=== PATIENT | female | born 1940 | race African-American/Black ===

== ENCOUNTER 2021-08-01 10:10 | Inpatient (IN) | payer MEDICARE ==
[~2021-08-01] VITALS: Ht 160 cm; Wt 67.1 kg
[2021-08-01] MEDS ORDERED: DILTIAZEM HCL 5MG/ML 5ML VIAL IV ONE (10:30)
[2021-08-01 11:07] LABS: HEMATOCRIT. 38.5 % (36.0-48.0); HEMOGLOBIN. 12.5 g/dL (12.0-16.0); MEAN CORPUSCULAR HEMOGLOBIN 29.9 pg (28.0-32.0); PLATELET 247 x1000/uL (130-400); RED BLOOD CELL COUNT 4.18 mill/uL (4.2-5.4); RED CELL DISTRIBUTION WIDTH 15.1 % (11.6-14.6)
[2021-08-01 11:14] LABS: CHLORIDE 100 mEq/L (98-107)
[2021-08-01 11:19] LABS: INR 1.6; PROTHROMBIN TIME 16.8 sec (9.6-11.0)
[2021-08-01] MEDS ORDERED: DILTIAZEM HCL 125 MG in DEXT 5% WATER 100 ML IV ONE (11:30)
[2021-08-01] MEDS ORDERED: VANCOMYCIN 1 G PREMIX 200 ML IV ONE (11:30)
[2021-08-01] MEDS ORDERED: PIPERACILLIN/TAZ 3.375G PREMIX 50 ML IV ONE (11:30)
[2021-08-01] MEDS ORDERED: SODIUM CHLORIDE 0.9% 1,000 ML IV ONE (11:45)
[2021-08-01 11:48] LABS: PLATELET ESTIMATE NORMAL
[2021-08-01] MEDS ORDERED: ENOXAPARIN 40MG/0.4ML SYR SUBCUT SCH (12:15)
[2021-08-01] MEDS ORDERED: ONDANSETRON HCL 4MG/2ML INJ IV PRN (12:15)
[2021-08-01] MEDS ORDERED: PIPERACILLIN/TAZOBACTAM 3.375 G in DEXTROSE 5% WATER 50 ML IV SCH (12:15)
[2021-08-01] MEDS ORDERED: CLONIDINE 0.1MG TABLET PO PRN (12:15)
[2021-08-01] MEDS ORDERED: IPRATROPIUM/ALBUTEROL 0.5-3(2.5)MG/3ML NEB HHN PRN (12:15)
[2021-08-01] MEDS ORDERED: DIPHENHYDRAMINE 50MG/ML VIAL IV PRN (12:15)
[2021-08-01] MEDS ORDERED: ENOXAPARIN 30MG/0.3ML SYR SUBCUT SCH (13:00)
[2021-08-01] MEDS ORDERED: LIDOCAINE HCL 1% 30ML VIAL (10MG/ML) ONE (13:03)
[2021-08-01] MEDS: DILTIAZEM HCL 30MG TABLET PO SCH (16:30)
[2021-08-01] MEDS ORDERED: ALBUMIN HUMAN 25GM/100ML (25%) IV PRN (21:00)
[2021-08-02] MEDS: PIPERACILLIN/TAZ 3.375G PREMIX 50 ML IV SCH ×4 (00:04→23:11)
[2021-08-02] MEDS: DILTIAZEM HCL 30MG TABLET PO SCH (01:08)
[2021-08-02 05:32] LABS: BASOPHILS % 0.2 % (0.0-2.0); HEMATOCRIT. 36.4 % (36.0-48.0); HEMOGLOBIN. 11.8 g/dL (12.0-16.0); LYMPHOCYTES % 9.2 % (20.0-50.0); MEAN CORPUSCULAR HEMOGLOBIN 29.8 pg (28.0-32.0); MEAN CORPUSCULAR VOLUME 91.7 fL (81.0-99.0); MEAN PLATELET VOLUME 8.8 fl (7.4-10.4); MONOCYTES % 5.1 % (2.0-8.0); NEUTROPHILS % 85.5 % (40.0-76.0); PLATELET 121 x1000/uL (130-400); RED BLOOD CELL COUNT 3.97 mill/uL (4.2-5.4)
[2021-08-02 05:37] LABS: CHLORIDE 102 mEq/L (98-107)
[2021-08-02] MEDS: DILTIAZEM HCL 125 MG in DEXTROSE 5% WATER 125 ML IV PRN ×2 (05:38→06:13)
[2021-08-02 05:44] LABS: LDL CHOLESTEROL 86 mg/dL (5-100)
[2021-08-02 05:45] LABS: HDL CHOLESTEROL 23 mg/dL (40-59)
[2021-08-02] MEDS: VANCOMYCIN 500 MG PREMIX 100 ML IV SCH (06:12)
[2021-08-02] MEDS ORDERED: DEXTROSE 50% WATER 50ML SYRINGE IV PRN (08:15)
[2021-08-02] MEDS: BLOOD SUGAR DIAGNOSTIC STRIP TEST SCH ×2 (11:30→21:00)
[2021-08-02] MEDS: INSULIN LISPRO 100 UNITS/ML SUBCUT SCH (12:00)
[2021-08-02] MEDS: ENOXAPARIN 60MG/0.6ML SYR SUBCUT SCH (13:00)
[2021-08-02] MEDS: DILTIAZEM HCL 60MG TABLET PO SCH (23:07)
[2021-08-02 23:30] VITALS: BP 114/77
[2021-08-02 23:46] VITALS: BP 109/69
[2021-08-03] VITALS (13 sets, daily range): BP systolic 108–160; BP diastolic 30–85
[2021-08-03] MEDS: ACETAMINOPHEN 325MG TABLET PO PRN (00:01)
[2021-08-03] MEDS: VANCOMYCIN 500 MG PREMIX 100 ML IV SCH (01:52)
[2021-08-03] MEDS: PIPERACILLIN/TAZ 3.375G PREMIX 50 ML IV SCH ×2 (05:47→14:06)
[2021-08-03] MEDS: DILTIAZEM HCL 60MG TABLET PO SCH ×4 (05:57→23:28)
[2021-08-03] MEDS: INSULIN LISPRO 100 UNITS/ML SUBCUT SCH ×4 (08:00→21:00)
[2021-08-03] MEDS: BLOOD SUGAR DIAGNOSTIC STRIP TEST SCH ×4 (08:18→21:00)
[2021-08-03] MEDS ORDERED: INFLUENZA VACCINE 05/PF 0.5 ML SYRINGE IM ONE (09:00)
[2021-08-03] MEDS ORDERED: PNEUMOCOCCAL 23-VAL P-SAC VAC 0.5 ML IM ONE (09:00)
[2021-08-03] MEDS: ENOXAPARIN 60MG/0.6ML SYR SUBCUT SCH (09:00)
[2021-08-03] MEDS ORDERED: ENOXAPARIN 40MG/0.4ML SYR SUBCUT SCH (12:00)
[2021-08-03] MEDS: PIPERACILLIN/TAZOBACTAM 3.375 G in DEXTROSE 5% WATER 50 ML IV SCH (22:18)
[2021-08-04] VITALS (15 sets, daily range): BP systolic 88–124; BP diastolic 43–73
[2021-08-04] MEDS: PIPERACILLIN/TAZOBACTAM 3.375 G in DEXTROSE 5% WATER 50 ML IV SCH (05:22)
[2021-08-04] MEDS: DILTIAZEM HCL 60MG TABLET PO SCH (05:42)
[2021-08-04] MEDS ORDERED: VANCOMYCIN 500 MG PREMIX 100 ML IV SCH (06:00)
[2021-08-04] MEDS: BLOOD SUGAR DIAGNOSTIC STRIP TEST SCH ×4 (07:32→21:00)
[2021-08-04] MEDS: INSULIN LISPRO 100 UNITS/ML SUBCUT SCH ×4 (07:51→21:00)
[2021-08-04 08:00] LABS: CHLORIDE 102 mEq/L (98-107)
[2021-08-04] MEDS ORDERED: ASPIRIN 81MG TABLET PO SCH (09:00)
[2021-08-04 09:34] LABS: BASOPHILS % 0.3 % (0.0-2.0); EOSINOPHILS % 0.2 % (0.0-5.0); HEMATOCRIT. 35.4 % (36.0-48.0); HEMOGLOBIN. 11.5 g/dL (12.0-16.0); LYMPHOCYTES % 7.7 % (20.0-50.0); MEAN CORPUSCULAR VOLUME 92.5 fL (81.0-99.0); NEUTROPHILS % 87.8 % (40.0-76.0); RED BLOOD CELL COUNT 3.82 mill/uL (4.2-5.4); RED CELL DISTRIBUTION WIDTH 15.5 % (11.6-14.6)
[2021-08-04] MEDS: ACETAMINOPHEN 325MG TABLET PO PRN (09:45)
[2021-08-04] MEDS ORDERED: METRONIDAZOLE 500 MG PREMIX 100 ML IV SCH (13:00)
[2021-08-04] MEDS ORDERED: DILTIAZEM HCL 30MG TABLET PO SCH (14:00)
[2021-08-04] MEDS: METRONIDAZOLE 500MG TABLET PO SCH ×2 (14:18→22:29)
[2021-08-04] MEDS: METOPROLOL TARTRATE 25MG TABLET PO SCH ×2 (14:22→22:00)
[2021-08-04] MEDS ORDERED: AZITHROMYCIN 500 MG in DEXT 5% WATER 250 ML IV SCH (15:00)
[2021-08-04 15:34] LABS: INR 1.4; PROTHROMBIN TIME 15.1 sec (9.6-11.0)
[2021-08-04] MEDS: CEFEPIME 2,000 MG in DEXT 5% WATER 100 ML IV SCH (15:45)
[2021-08-04 16:08] LABS: D-DIMER > 35.20 mg/L FEU (<0.50)
[2021-08-04] MEDS: DEXT 5%/0.9% NACL 1,000 ML IV SCH (17:52)
[2021-08-05] VITALS (12 sets, daily range): BP systolic 102–130; BP diastolic 69–79
[2021-08-05] MEDS: CEFEPIME 2,000 MG in DEXT 5% WATER 100 ML IV SCH ×2 (03:27→15:15)
[2021-08-05] MEDS: METRONIDAZOLE 500MG TABLET PO SCH ×3 (05:20→21:51)
[2021-08-05 07:26] LABS: BASOPHILS % 0.2 % (0.0-2.0); EOSINOPHILS % 0.3 % (0.0-5.0); HEMATOCRIT. 33.4 % (36.0-48.0); HEMOGLOBIN. 10.8 g/dL (12.0-16.0); LYMPHOCYTES % 9.5 % (20.0-50.0); MEAN CORPUSCULAR HEMOGLOBIN 30.1 pg (28.0-32.0); MEAN CORPUSCULAR VOLUME 92.8 fL (81.0-99.0); MEAN PLATELET VOLUME 10.4 fl (7.4-10.4); MONOCYTES % 5.1 % (2.0-8.0); NEUTROPHILS % 84.9 % (40.0-76.0); PLATELET 56 x1000/uL (130-400); RED CELL DISTRIBUTION WIDTH 15.4 % (11.6-14.6)
[2021-08-05] MEDS: BLOOD SUGAR DIAGNOSTIC STRIP TEST SCH ×4 (07:30→21:40)
[2021-08-05 07:59] LABS: CHLORIDE 100 mEq/L (98-107)
[2021-08-05] MEDS: INSULIN LISPRO 100 UNITS/ML SUBCUT SCH ×4 (08:00→21:00)
[2021-08-05] MEDS: METOPROLOL TARTRATE 25MG TABLET PO SCH ×2 (09:35→21:51)
[2021-08-05] MEDS ORDERED: SODIUM CHLORIDE 0.9% 750 ML IV NR (14:00)
[2021-08-05] MEDS: DEXT 5%/0.9% NACL 1,000 ML IV SCH (15:14)
[2021-08-05] MEDS: AZITHROMYCIN 500 MG TABLET PO SCH (15:14)
[2021-08-05 15:31] LABS: PLATELET 11 x1000/uL (130-400)
[2021-08-05] MEDS: ASPIRIN 81MG TABLET PO SCH (17:20)
[2021-08-05] MEDS ORDERED: IOHEXOL-350 100 ML BOTTLE ONE (22:50)
[2021-08-06] VITALS (12 sets, daily range): BP systolic 102–136; BP diastolic 45–77
[2021-08-06] MEDS: CEFEPIME 2,000 MG in DEXT 5% WATER 100 ML IV SCH ×2 (02:34→14:06)
[2021-08-06] MEDS: DEXT 5%/0.9% NACL 1,000 ML IV SCH ×2 (02:34→21:36)
[2021-08-06] MEDS: METRONIDAZOLE 500MG TABLET PO SCH ×3 (05:36→21:37)
[2021-08-06 06:05] LABS: CHLORIDE 101 mEq/L (98-107)
[2021-08-06 06:07] LABS: BASOPHILS % 0.1 % (0.0-2.0); EOSINOPHILS % 0.4 % (0.0-5.0); HEMATOCRIT. 31.4 % (36.0-48.0); HEMOGLOBIN. 10.4 g/dL (12.0-16.0); LYMPHOCYTES % 7.4 % (20.0-50.0); MEAN CORPUSCULAR HEMOGLOBIN 30.5 pg (28.0-32.0); MEAN CORPUSCULAR VOLUME 92.4 fL (81.0-99.0); MEAN PLATELET VOLUME 11.2 fl (7.4-10.4); MONOCYTES % 5.2 % (2.0-8.0); NEUTROPHILS % 86.9 % (40.0-76.0); PLATELET 73 x1000/uL (130-400); RED BLOOD CELL COUNT 3.39 mill/uL (4.2-5.4); RED CELL DISTRIBUTION WIDTH 15.5 % (11.6-14.6)
[2021-08-06] MEDS: BLOOD SUGAR DIAGNOSTIC STRIP TEST SCH ×4 (07:30→20:14)
[2021-08-06] MEDS: INSULIN LISPRO 100 UNITS/ML SUBCUT SCH ×4 (08:00→20:14)
[2021-08-06] MEDS ORDERED: ENOXAPARIN 60MG/0.6ML SYR SUBCUT SCH (09:00)
[2021-08-06] MEDS: ASPIRIN 81MG TABLET PO SCH (10:23)
[2021-08-06] MEDS: METOPROLOL TARTRATE 25MG TABLET PO SCH ×2 (10:23→21:37)
[2021-08-06] MEDS ORDERED: POTASSIUM CHLORIDE 20MEQ/PACKET PO SCH (10:45)
[2021-08-06] MEDS: AZITHROMYCIN 500 MG TABLET PO SCH (11:51)
[2021-08-06 12:52] LABS: FIBRINOGEN 450 mg/dL (200-400); INR 1.4; PARTIAL THROMBOPLASTIN TIME 35.8 sec (23.4-31.0)
[2021-08-06] MEDS ORDERED: SODIUM CHLORIDE 0.9% 750 ML IV NR (14:00)
[2021-08-06] MEDS: ENOXAPARIN 60MG/0.6ML SYR SUBCUT SCH (14:07)
[2021-08-06 14:31] LABS: D-DIMER > 35.20 mg/L FEU (<0.50)
[2021-08-07] VITALS (12 sets, daily range): BP systolic 116–152; BP diastolic 69–83
[2021-08-07] MEDS: ENOXAPARIN 60MG/0.6ML SYR SUBCUT SCH ×2 (01:47→15:12)
[2021-08-07] MEDS: CEFEPIME 2,000 MG in DEXT 5% WATER 100 ML IV SCH ×2 (02:11→15:12)
[2021-08-07] MEDS: METRONIDAZOLE 500MG TABLET PO SCH ×3 (06:10→21:06)
[2021-08-07 07:28] LABS: BASOPHILS % 0.1 % (0.0-2.0); EOSINOPHILS % 0.3 % (0.0-5.0); HEMOGLOBIN. 10.8 g/dL (12.0-16.0); LYMPHOCYTES % 7.9 % (20.0-50.0); MEAN CORPUSCULAR HEMOGLOBIN 30.4 pg (28.0-32.0); MEAN CORPUSCULAR VOLUME 93.2 fL (81.0-99.0); MEAN PLATELET VOLUME 10.4 fl (7.4-10.4); MONOCYTES % 5.3 % (2.0-8.0); NEUTROPHILS % 86.4 % (40.0-76.0); PLATELET 113 x1000/uL (130-400); RED BLOOD CELL COUNT 3.54 mill/uL (4.2-5.4); RED CELL DISTRIBUTION WIDTH 16.1 % (11.6-14.6)
[2021-08-07 07:29] LABS: CHLORIDE 105 mEq/L (98-107)
[2021-08-07] MEDS: INSULIN LISPRO 100 UNITS/ML SUBCUT SCH ×4 (08:00→21:00)
[2021-08-07] MEDS: BLOOD SUGAR DIAGNOSTIC STRIP TEST SCH ×4 (08:01→21:06)
[2021-08-07] MEDS: ASPIRIN 81MG TABLET PO SCH (08:36)
[2021-08-07] MEDS: METOPROLOL TARTRATE 25MG TABLET PO SCH ×3 (08:36→21:06)
[2021-08-07] MEDS: AZITHROMYCIN 500 MG TABLET PO SCH (10:04)
[2021-08-07] MEDS: DEXT 5%/0.9% NACL 1,000 ML IV SCH (13:05)
[2021-08-07] MEDS: IPRATROPIUM/ALBUTEROL 0.5-3(2.5)MG/3ML NEB HHN SCH ×2 (15:08→21:22)
[2021-08-08] VITALS (11 sets, daily range): BP systolic 110–147; BP diastolic 70–83
[2021-08-08] MEDS: ENOXAPARIN 60MG/0.6ML SYR SUBCUT SCH ×2 (02:25→14:05)
[2021-08-08] MEDS: CEFEPIME 2,000 MG in DEXT 5% WATER 100 ML IV SCH ×2 (02:26→15:58)
[2021-08-08] MEDS: DEXT 5%/0.9% NACL 1,000 ML IV SCH ×2 (04:53→09:19)
[2021-08-08] MEDS: METRONIDAZOLE 500MG TABLET PO SCH ×3 (05:37→21:10)
[2021-08-08] MEDS: BLOOD SUGAR DIAGNOSTIC STRIP TEST SCH ×4 (07:30→21:00)
[2021-08-08] MEDS: INSULIN LISPRO 100 UNITS/ML SUBCUT SCH ×4 (08:00→21:00)
[2021-08-08] MEDS: IPRATROPIUM/ALBUTEROL 0.5-3(2.5)MG/3ML NEB HHN SCH ×3 (08:34→20:48)
[2021-08-08] MEDS: METOPROLOL TARTRATE 25MG TABLET PO SCH ×2 (08:51→21:10)
[2021-08-08] MEDS: ASPIRIN 81MG TABLET PO SCH (08:51)
[2021-08-08] MEDS: AZITHROMYCIN 500 MG TABLET PO SCH (10:58)
[2021-08-08] MEDS ORDERED: NALOXONE HCL 0.4MG/ML VIAL IV PRN (14:00)
[2021-08-08] MEDS: MORPHINE SULFATE 2 MG/ML CPJ (NOT FOR IM USE) IV PRN (14:16)
[2021-08-08 16:49] LABS: BASOPHILS % 0.2 % (0.0-2.0); EOSINOPHILS % 0.3 % (0.0-5.0); HEMATOCRIT. 32.9 % (36.0-48.0); HEMOGLOBIN. 10.4 g/dL (12.0-16.0); LYMPHOCYTES % 7.9 % (20.0-50.0); MEAN CORPUSCULAR HEMOGLOBIN 29.2 pg (28.0-32.0); MEAN CORPUSCULAR VOLUME 92.1 fL (81.0-99.0); MEAN PLATELET VOLUME 9.7 fl (7.4-10.4); MONOCYTES % 4.8 % (2.0-8.0); NEUTROPHILS % 86.8 % (40.0-76.0); PLATELET 193 x1000/uL (130-400); RED BLOOD CELL COUNT 3.57 mill/uL (4.2-5.4); RED CELL DISTRIBUTION WIDTH 16.8 % (11.6-14.6)
[2021-08-08 17:04] LABS: CHLORIDE 108 mEq/L (98-107)
[2021-08-09] VITALS (8 sets, daily range): BP systolic 108–130; BP diastolic 60–81
[2021-08-09] MEDS: ENOXAPARIN 60MG/0.6ML SYR SUBCUT SCH ×2 (02:06→14:31)
[2021-08-09] MEDS: CEFEPIME 2,000 MG in DEXT 5% WATER 100 ML IV SCH ×2 (02:06→14:30)
[2021-08-09] MEDS: METRONIDAZOLE 500MG TABLET PO SCH ×2 (05:18→14:30)
[2021-08-09] MEDS: DEXT 5%/0.9% NACL 1,000 ML IV SCH (05:19)
[2021-08-09] MEDS: BLOOD SUGAR DIAGNOSTIC STRIP TEST SCH ×4 (07:19→21:48)
[2021-08-09] MEDS: INSULIN LISPRO 100 UNITS/ML SUBCUT SCH ×4 (07:41→21:00)
[2021-08-09 08:42] LABS: BASOPHILS % 0.2 % (0.0-2.0); EOSINOPHILS % 0.4 % (0.0-5.0); HEMATOCRIT. 31.4 % (36.0-48.0); HEMOGLOBIN. 10.2 g/dL (12.0-16.0); LYMPHOCYTES % 8.7 % (20.0-50.0); MEAN CORPUSCULAR HEMOGLOBIN 29.8 pg (28.0-32.0); MEAN CORPUSCULAR VOLUME 91.7 fL (81.0-99.0); MEAN PLATELET VOLUME 9.3 fl (7.4-10.4); MONOCYTES % 6.4 % (2.0-8.0); NEUTROPHILS % 84.3 % (40.0-76.0); PLATELET 213 x1000/uL (130-400); RED BLOOD CELL COUNT 3.42 mill/uL (4.2-5.4); RED CELL DISTRIBUTION WIDTH 16.3 % (11.6-14.6)
[2021-08-09 08:47] LABS: CHLORIDE 106 mEq/L (98-107)
[2021-08-09] MEDS: IPRATROPIUM/ALBUTEROL 0.5-3(2.5)MG/3ML NEB HHN SCH ×2 (08:54→15:44)
[2021-08-09] MEDS: METOPROLOL TARTRATE 25MG TABLET PO SCH ×2 (09:25→21:48)
[2021-08-09] MEDS: ASPIRIN 81MG TABLET PO SCH (09:25)
[2021-08-09] MEDS: MORPHINE SULFATE 2 MG/ML CPJ (NOT FOR IM USE) IV PRN ×2 (15:33→23:34)
[2021-08-10] VITALS (11 sets, daily range): BP systolic 108–132; BP diastolic 63–101
[2021-08-10] MEDS: IPRATROPIUM/ALBUTEROL 0.5-3(2.5)MG/3ML NEB HHN SCH ×3 (00:40→16:10)
[2021-08-10] MEDS: ENOXAPARIN 60MG/0.6ML SYR SUBCUT SCH ×2 (01:28→14:22)
[2021-08-10 05:49] LABS: BASOPHILS % 0.2 % (0.0-2.0); EOSINOPHILS % 0.5 % (0.0-5.0); HEMATOCRIT. 30.2 % (36.0-48.0); HEMOGLOBIN. 10.2 g/dL (12.0-16.0); MEAN CORPUSCULAR HEMOGLOBIN 30.7 pg (28.0-32.0); MEAN CORPUSCULAR VOLUME 91.2 fL (81.0-99.0); MEAN PLATELET VOLUME 9.1 fl (7.4-10.4); MONOCYTES % 6.3 % (2.0-8.0); PLATELET 254 x1000/uL (130-400); RED BLOOD CELL COUNT 3.31 mill/uL (4.2-5.4); RED CELL DISTRIBUTION WIDTH 16.5 % (11.6-14.6)
[2021-08-10] MEDS: MORPHINE SULFATE 2 MG/ML CPJ (NOT FOR IM USE) IV PRN ×2 (05:59→10:02)
[2021-08-10 07:03] LABS: CHLORIDE 108 mEq/L (98-107)
[2021-08-10] MEDS: BLOOD SUGAR DIAGNOSTIC STRIP TEST SCH ×4 (07:30→21:16)
[2021-08-10] MEDS: INSULIN LISPRO 100 UNITS/ML SUBCUT SCH ×4 (08:00→21:00)
[2021-08-10] MEDS: METOPROLOL TARTRATE 25MG TABLET PO SCH ×2 (09:30→20:52)
[2021-08-10] MEDS: ASPIRIN 81MG TABLET PO SCH (09:30)
[2021-08-10] MEDS: DEXT 5%/0.9% NACL 1,000 ML IV SCH (10:41)
[2021-08-10] MEDS ORDERED: METO25TA6 PO (14:25)
[2021-08-10] MEDS ORDERED: APIX5TAB MT (14:25)
[2021-08-10] MEDS ORDERED: ASPI-1406 MT (14:28)
== END 2021-08-10 22:09 | DRG 871 ==
LOC: ER 10:10 → MICUSO 11:42 → EDBEDREQTM 11:47 → EDBEDREQSVC 11:47 → EDBEDREQ 11:47 → 5EST 08-02 20:09
PROVIDERS: ADMIT Internal Medicine; ATTEND Internal Medicine
PROC: 02H633Z Insertion of Infusion Device into Right Atrium, Percutaneous Approach (ICD-10-PCS; principal; 2021-08-01)
PROC: B548ZZA Ultrasonography of Superior Vena Cava, Guidance (ICD-10-PCS; 2021-08-01)
PROC: 30233R1 Transfusion of Nonautologous Platelets into Peripheral Vein, Percutaneous Approach (ICD-10-PCS; 2021-08-04)
DX: A41.9 Sepsis, unspecified organism (principal); J18.9 Pneumonia, unspecified organism; J96.01 Acute respiratory failure with hypoxia; I82.220 Acute embolism and thrombosis of inferior vena cava; I26.92 Saddle embolus of pulmonary artery without acute cor pulmonale; G93.41 Metabolic encephalopathy; E87.2 Acidosis; E44.1 Mild protein-calorie malnutrition; F03.90 Unspecified dementia, unspecified severity, without behavioral disturbance, psychotic disturbance, mood disturbance, and anxiety; I11.9 Hypertensive heart disease without heart failure; Z20.822 Contact with and (suspected) exposure to COVID-19; M19.90 Unspecified osteoarthritis, unspecified site; D69.6 Thrombocytopenia, unspecified; D64.9 Anemia, unspecified; N28.9 Disorder of kidney and ureter, unspecified; D15.1 Benign neoplasm of heart; R74.01 Elevation of levels of liver transaminase levels; R73.9 Hyperglycemia, unspecified; I48.0 Paroxysmal atrial fibrillation; R53.81 Other malaise; Z86.73 Personal history of transient ischemic attack (TIA), and cerebral infarction without residual deficits; Z68.26 Body mass index [BMI] 26.0-26.9, adult; W19.XXXA Unspecified fall, initial encounter
CPT/HCPCS: 36415; 71045; 71275; 76937; 80048; 80053; 80061; 80202; 82962; 83036; 83605; 83735; 84145; 84443; 84484; 85025; 85049; 85379; 85384; 86022; 86850; 86900; 87426; 90686; 90732; 93005; 93306; 93308; 93970; 94640; 99285; C1725; J0456; J0692; J1200; J1650; J2270; J2543; J3370; J3490; J7030; J7042; J7060; P9034; P9047; Q9967

== ENCOUNTER 2021-09-14 12:20 | Emergency (ER) | payer MEDICARE ==
[~2021-09-14] VITALS: Ht 162.6 cm; Wt 40.0 kg
[~2021-09-14 12:20] MED LIST: APIX5TAB MT; ASPI-1406 MT; METO25TA6 PO
[2021-09-14 13:44] LABS: BASOPHILS % 1.1 % (0.0-2.0); HEMATOCRIT. 40.4 % (36.0-48.0); LYMPHOCYTES % 19.1 % (20.0-50.0); MEAN CORPUSCULAR HEMOGLOBIN 29.1 pg (28.0-32.0); MEAN CORPUSCULAR VOLUME 90.1 fL (81.0-99.0); MEAN PLATELET VOLUME 8.7 fl (7.4-10.4); MONOCYTES % 4.6 % (2.0-8.0); NEUTROPHILS % 74.2 % (40.0-76.0); PLATELET 212 x1000/uL (130-400); RED BLOOD CELL COUNT 4.48 mill/uL (4.2-5.4); RED CELL DISTRIBUTION WIDTH 16.3 % (11.6-14.6)
[2021-09-14 13:50] LABS: CHLORIDE 107 mEq/L (98-107)
[2021-09-14 13:56] LABS: ETHANOL BLOOD < 10 mg/dL
[2021-09-14 15:41] LABS: CLARITY URINE CLEAR (CLEAR); COLOR URINE DARK YELLOW (YELLOW); KETONES URINE TRACE (NEGATIVE); LEUKOCYTE ESTERASE URINE NEGATIVE (NEGATIVE); NITRITE URINE NEGATIVE (NEGATIVE); OCCULT BLOOD URINE NEGATIVE (NEGATIVE); PROTEIN URINE 1+ (NEGATIVE); SPECIFIC GRAVITY URINE 1.021 (1.005-1.030); UROBILINOGEN URINE 0.2 E.U./dL (0.2-1.0)
[2021-09-14 15:52] LABS: *AMPHETAMINES SCREEN URINE NEGATIVE (NEGATIVE); *BARBITURATES SCREEN URINE NEGATIVE (NEGATIVE); CANNABINOID URINE SCREEN NEGATIVE (NEGATIVE); METHADONE URINE SCREEN NEGATIVE (NEGATIVE); OPIATES URINE SCREEN NEGATIVE (NEGATIVE); PHENCYCLIDINE URINE SCREEN NEGATIVE (NEGATIVE)
[2021-09-14 15:53] LABS: *BENZODIAZEPINES SCREEN URINE NEGATIVE (NEGATIVE); *COCAINE SCREEN URINE NEGATIVE (NEGATIVE)
[2021-09-14] MEDS ORDERED: LORAZEPAM 1MG TABLET PO ONE (21:30)
[2021-09-15 10:25] VITALS: BP 111/85
== END 2021-09-15 10:23 | disposition home or self-care (01) ==
LOC: ER 12:46
DX: F05 Delirium due to known physiological condition (principal); R40.4 Transient alteration of awareness; I48.91 Unspecified atrial fibrillation; E11.9 Type 2 diabetes mellitus without complications; I51.9 Heart disease, unspecified; Z66 Do not resuscitate; Z79.01 Long term (current) use of anticoagulants; Z79.82 Long term (current) use of aspirin
CPT/HCPCS: 36415; 71045; 80053; 80305; 80320; 81003; 82962; 85025; 99285; G0480

== ENCOUNTER 2021-10-13 13:17 | Emergency (ER) | payer SELFPAY ==
[~2021-10-13] VITALS: Ht 160 cm; Wt 50.0 kg
[2021-10-13] MEDS ORDERED: LORAZEPAM 2MG/ML CPJ IV ONE (13:30)
[2021-10-13 14:10] LABS: BASOPHILS % 0.5 % (0.0-2.0); EOSINOPHILS % 0.5 % (0.0-5.0); HEMOGLOBIN. 11.9 g/dL (12.0-16.0); LYMPHOCYTES % 18.1 % (20.0-50.0); MEAN CORPUSCULAR HEMOGLOBIN 28.1 pg (28.0-32.0); MEAN PLATELET VOLUME 8.9 fl (7.4-10.4); MONOCYTES % 4.3 % (2.0-8.0); NEUTROPHILS % 76.6 % (40.0-76.0); PLATELET 216 x1000/uL (130-400); RED BLOOD CELL COUNT 4.22 mill/uL (4.2-5.4)
[2021-10-13 14:15] LABS: CHLORIDE 104 mEq/L (98-107)
[2021-10-13 15:31] LABS: CLARITY URINE CLEAR (CLEAR); COLOR URINE YELLOW (YELLOW); KETONES URINE NEGATIVE (NEGATIVE); LEUKOCYTE ESTERASE URINE NEGATIVE (NEGATIVE); NITRITE URINE POSITIVE (NEGATIVE); OCCULT BLOOD URINE NEGATIVE (NEGATIVE); PH URINE 5.5 (4.5-8.0); PROTEIN URINE NEGATIVE (NEGATIVE); SPECIFIC GRAVITY URINE 1.007 (1.005-1.030); UROBILINOGEN URINE 0.2 E.U./dL (0.2-1.0)
[2021-10-13] MEDS ORDERED: LEVO500T89 MT (16:41)
[2021-10-13] MEDS ORDERED: CEFTRIAXONE 1 G PREMIX 50 ML IV ONE (18:00)
[2021-10-13 21:30] VITALS: BP 109/63
== END 2021-10-13 21:40 ==
LOC: ER 13:17
DX: R56.9 Unspecified convulsions (principal); N30.00 Acute cystitis without hematuria; F03.90 Unspecified dementia, unspecified severity, without behavioral disturbance, psychotic disturbance, mood disturbance, and anxiety; E11.22 Type 2 diabetes mellitus with diabetic chronic kidney disease; I13.10 Hypertensive heart and chronic kidney disease without heart failure, with stage 1 through stage 4 chronic kidney disease, or unspecified chronic kidney disease; N18.9 Chronic kidney disease, unspecified; J44.9 Chronic obstructive pulmonary disease, unspecified; I48.91 Unspecified atrial fibrillation; M19.90 Unspecified osteoarthritis, unspecified site; Z66 Do not resuscitate; Z79.01 Long term (current) use of anticoagulants; Z79.82 Long term (current) use of aspirin; Z74.01 Bed confinement status
CPT/HCPCS: 36415; 70450; 80053; 81003; 85025; 96374; 96375; 99291; J0696; J2060